=== PATIENT | male | born 1960 | race Caucasian/White ===

== ENCOUNTER → 2017-07-07 | Outpatient (CLI) | payer BC ==
--- NOTE | 2017-07-07 16:48 | RADIOLOGY REPORT (SQ) ---
EXAM DESCRIPTION: CHEST PA/LATERAL COMPLETED DATE/TIME: 07/07/2017 4:41 pm REASON FOR STUDY: HEART FAILURE, UNSPECIFIED COMPARISON: None. EXAM PARAMETERS: NUMBER OF VIEWS: two views TECHNIQUE: Digital Frontal and Lateral radiographic views of the chest acquired. RADIATION DOSE: NA LIMITATIONS: none FINDINGS: LUNGS AND PLEURA: No opacities, masses or pneumothorax. No pleural effusion. MEDIASTINUM AND HILAR STRUCTURES: No masses or contour abnormalities. HEART AND VASCULAR STRUCTURES: Heart normal size. No evidence for failure. BONES: No acute findings. HARDWARE: None in the chest. OTHER: No other significant finding. IMPRESSION: NO SIGNIFICANT RADIOGRAPHIC FINDING IN THE CHEST. TECHNICAL DOCUMENTATION: JOB ID: [id number] [employer]- All Rights Reserved Reading location - IP/workstation name: [email or web address]
== END ==
LOC: OD 16:26
PROVIDERS: ATTEND Internal Medicine Cardiovascular Disease
DX: I50.9 Heart failure, unspecified (principal)
CPT/HCPCS: 71046

== ENCOUNTER → 2017-07-27 | Outpatient (CLI) | payer BC ==
--- NOTE | 2017-07-27 14:49 | RADIOLOGY REPORT (SQ) ---
EXAM DESCRIPTION: CTA HEAD; CTA NECK COMPLETED DATE/TIME: 07/27/2017 10:36 am; 07/27/2017 10:38 am REASON FOR STUDY: TRANSIENT CEREBRAL ISCHEMIC ATTACK (G45.9) G45.9 TRANSIENT CEREBRAL ISCHEMIC GERMAINE CK, UNSPECIFIED COMPARISON: None. TECHNIQUE: Pre and Post IV contrast scanning, thin section axial imaging through the brain to evalua te the arterial structures. Source and MIP images are saved and reviewed on PACS. Post IV scanning through the neck soft tissues was performed to evaluate the carotid and vertebral ci rculation. Source AA maximum intensity projected images were reviewed and saved to PACS. Advanced 3D imaging as volume-rendering, MIPs, SSD performed? yes All CT scanners at this facility use dose modulation, iterative reconstruction, and/or weight based d osing when appropriate to reduce radiation dose to as low as reasonably achievable (ALARA). [facility]: Dose Right [facility]: CareDose [facility]: Dose Right [facility]: Teradose 4D [facility]: [employer] CONTRAST TYPE AND DOSE: contrast/concentration: Isovue 370.00 mg/ml; Total Contrast Delivered: 80.0 ml; Total Saline Delivered: 75.0 ml RENAL FUNCTION: Creatinine 1.0 LIMITATIONS: None. FINDINGS: Pre and postcontrast brain imaging: Non contrasted imaging demonstrates minimal bifrontal and biparietal spotty low attenuation in the he mispheric white matter from minimal small vessel ischemic change. No CT evidence of acute ischemic c hange, acute intracranial hemorrhage, mass effect, or midline shift. Ventricles and extra-axial CSF spaces are normal. Paranasal sinuses are clear. There is fluid throughout the bilateral mastoid air cells. Middle ear cavities are clear. Orbits are unremarkable. On the post contrasted brain images, no abnormal vascular or brain parenchymal or dural enhancement i s seen. No masses. [place] CT angio: No [place] stenosis, vascular malformation, or aneurysm. Carotid and vertebral CT angio neck: Origin of the great vessels unremarkable. Patent right brachiocephalic artery, right common carotid artery. Minimal atherosclerotic plaque at the right carotid bifurcation without flow significant stenosis. Cervical internal carotid artery un remarkable. No dissection. Left common carotid artery unremarkable. Minimal atherosclerotic plaque at the left carotid bifurcat ion without flow significant stenosis. Left cervical ICA unremarkable. No dissection. Codominant vertebral arteries are widely patent throughout the neck. No dissection. No focal stenos is. Lung apices are clear. Airways are patent. No neck masses or adenopathy. Thyroid, major salivary g lands unremarkable. Mild multilevel degenerative disc changes in the cervical spine with mild right foraminal narrowing at C3-4, moderate left foraminal narrowing at C4-5, from bony spurring. IMPRESSION: NO CTA EVIDENCE OF STENOSIS OR ANEURYSM OF THE [place] OF [place]. MILD ATHEROSCLEROTIC CHANGE AT THE CAROTID BIFURCATIONS WITHOUT FLOW SIGNIFICANT STENOSIS. UNREMARKABLE VERTEBROBASILAR SYSTEM. TECHNICAL DOCUMENTATION: JOB ID: [id number] Quality ID # [id number]: Final reports with documentation of one or more dose reduction techniques (e.g., Au tomated exposure control, adjustment of the mA and/or kV according to patient size, use of iterative reconstruction technique) 2010 [employer]- All Rights Reserved Reading location - IP/workstation name: [email or web address]
--- NOTE | 2017-07-27 14:49 | RADIOLOGY REPORT (SQ) ---
EXAM DESCRIPTION: CTA HEAD; CTA NECK COMPLETED DATE/TIME: 07/27/2017 10:36 am; 07/27/2017 10:38 am REASON FOR STUDY: TRANSIENT CEREBRAL ISCHEMIC ATTACK (G45.9) G45.9 TRANSIENT CEREBRAL ISCHEMIC GERMAINE CK, UNSPECIFIED COMPARISON: None. TECHNIQUE: Pre and Post IV contrast scanning, thin section axial imaging through the brain to evalua te the arterial structures. Source and MIP images are saved and reviewed on PACS. Post IV scanning through the neck soft tissues was performed to evaluate the carotid and vertebral ci rculation. Source AA maximum intensity projected images were reviewed and saved to PACS. Advanced 3D imaging as volume-rendering, MIPs, SSD performed? yes All CT scanners at this facility use dose modulation, iterative reconstruction, and/or weight based d osing when appropriate to reduce radiation dose to as low as reasonably achievable (ALARA). [facility]: Dose Right [facility]: CareDose [facility]: Dose Right [facility]: Teradose 4D [facility]: [employer] CONTRAST TYPE AND DOSE: contrast/concentration: Isovue 370.00 mg/ml; Total Contrast Delivered: 80.0 ml; Total Saline Delivered: 75.0 ml RENAL FUNCTION: Creatinine 1.0 LIMITATIONS: None. FINDINGS: Pre and postcontrast brain imaging: Non contrasted imaging demonstrates minimal bifrontal and biparietal spotty low attenuation in the he mispheric white matter from minimal small vessel ischemic change. No CT evidence of acute ischemic c hange, acute intracranial hemorrhage, mass effect, or midline shift. Ventricles and extra-axial CSF spaces are normal. Paranasal sinuses are clear. There is fluid throughout the bilateral mastoid air cells. Middle ear cavities are clear. Orbits are unremarkable. On the post contrasted brain images, no abnormal vascular or brain parenchymal or dural enhancement i s seen. No masses. [place] of [place] CT angio: No [place] of [place] stenosis, vascular malformation, or aneurysm. Carotid and vertebral CT angio neck: Origin of the great vessels unremarkable. Patent right brachiocephalic artery, right common carotid artery. Minimal atherosclerotic plaque at the right carotid bifurcation without flow significant stenosis. Cervical internal carotid artery un remarkable. No dissection. Left common carotid artery unremarkable. Minimal atherosclerotic plaque at the left carotid bifurcat ion without flow significant stenosis. Left cervical ICA unremarkable. No dissection. Codominant vertebral arteries are widely patent throughout the neck. No dissection. No focal stenos is. Lung apices are clear. Airways are patent. No neck masses or adenopathy. Thyroid, major salivary g lands unremarkable. Mild multilevel degenerative disc changes in the cervical spine with mild right foraminal narrowing at C3-4, moderate left foraminal narrowing at C4-5, from bony spurring. IMPRESSION: NO CTA EVIDENCE OF STENOSIS OR ANEURYSM OF THE [place] OF [place]. MILD ATHEROSCLEROTIC CHANGE AT THE CAROTID BIFURCATIONS WITHOUT FLOW SIGNIFICANT STENOSIS. UNREMARKABLE VERTEBROBASILAR SYSTEM. TECHNICAL DOCUMENTATION: JOB ID: [id number] Quality ID # [id number]: Final reports with documentation of one or more dose reduction techniques (e.g., Au tomated exposure control, adjustment of the mA and/or kV according to patient size, use of iterative reconstruction technique) 2010 [employer]- All Rights Reserved Reading location - IP/workstation name: [email or web address]
== END ==
LOC: RAD 09:57
PROVIDERS: ATTEND Internal Medicine Cardiovascular Disease
DX: G45.9 Transient cerebral ischemic attack, unspecified (principal)
CPT/HCPCS: 70496; 70498

== ENCOUNTER 2019-02-19 09:25 | Day surgery (SDC) | payer BC ==
[2019-02-15 12:41] LABS: ABSOLUTE BASOPHILS # (AUTO) 0.1 10^3/uL (0.0-0.2); ABSOLUTE EOSINOPHILS # (AUTO) 0.2 10^3/uL (0.0-0.6); ABSOLUTE LYMPHOCYTES (AUTO) 1.7 10^3/uL (0.5-4.7); ABSOLUTE MONOCYTES (AUTO) 0.7 10^3/uL (0.1-1.4); ABSOLUTE NEUT (AUTO) 3.5 10^3/uL (1.7-8.2); BASOPHILS % (AUTO) 0.9 % (0-2); EOSINOPHILS % (AUTO) 3.1 % (0-6); HEMATOCRIT 38.4 % (37.9-51.0); HEMOGLOBIN 13.3 g/dL (13.5-17.0); LYMPHOCYTES % (AUTO) 28.1 % (13-45); MEAN CORPUSCULAR HEMOGLOBIN 30.3 pg (27.0-33.4); MEAN CORPUSCULAR HGB CONC 34.6 g/dL (32.0-36.0); MEAN CORPUSCULAR VOLUME 88 fl (80-97); MONOCYTES % (AUTO) 10.7 % (3-13); PLATELET COUNT 236 10^3/uL (150-450); RED BLOOD COUNT 4.39 10^6/uL (4.35-5.55); RED CELL DISTRIBUTION WIDTH 15.2 % (11.5-14.0); SEGMENTED NEUTROPHILS % (AUTO) 57.2 % (42-78); TOTAL CELLS COUNTED % (AUTO) 100 %; WHITE BLOOD COUNT 6.2 10^3/uL (4.0-10.5)
[2019-02-15 12:44] LABS: INTERNATIONAL RATION (INR) 1.02; PROTHROMBIN TIME 13.4 SEC (11.4-15.4)
[2019-02-15 12:45] LABS: PARTIAL THROMBOPLASTIN TIME 31.8 SEC (23.5-35.8)
[2019-02-15 13:22] LABS: ANION GAP 11 (5-19); BLOOD UREA NITROGEN 13 mg/dL (7-20); CALCIUM 9.2 mg/dL (8.4-10.2); CARBON DIOXIDE 25 mmol/L (22-30); CHLORIDE 106 mmol/L (98-107); GLUCOSE 160 mg/dL (75-110); POTASSIUM 3.8 mmol/L (3.6-5.0)
--- NOTE | 2019-02-15 14:50 | RADIOLOGY REPORT (SQ) ---
EXAM DESCRIPTION: CHEST PA/LATERAL COMPLETED DATE/TIME: 02/15/2019 12:32 pm REASON FOR STUDY: PRE-OP COMPARISON: None. EXAM PARAMETERS: NUMBER OF VIEWS: two views TECHNIQUE: Digital Frontal and Lateral radiographic views of the chest acquired. RADIATION DOSE: NA LIMITATIONS: none FINDINGS: LUNGS AND PLEURA: No opacities, masses or pneumothorax. No pleural effusion. MEDIASTINUM AND HILAR STRUCTURES: No masses or contour abnormalities. HEART AND VASCULAR STRUCTURES: Heart normal size. No evidence for failure. BONES: No acute findings. HARDWARE: None in the chest. OTHER: No other significant finding. IMPRESSION: NO SIGNIFICANT RADIOGRAPHIC FINDING IN THE CHEST. TECHNICAL DOCUMENTATION: JOB ID: [id number] [employer]- All Rights Reserved Reading location - IP/workstation name: [email or web address]
--- NOTE | 2019-02-15 15:01 | EKG REPORT ---
SEVERITY:- ABNORMAL ECG - SINUS RHYTHM RIGHT BUNDLE BRANCH BLOCK : Confirmed by: Jonathan Tamayo MD 15-Feb-2019 15:01:04
[~2019-02-19 09:25] MED LIST: ACETAMINOPHEN 325 MG TABLET PO PRN; CEFAZOLIN SODIUM 2 GM in DEXTROSE 5%-WATER 100 ML IV PRN; LACTATED RINGERS 1000 ML IV PRN; LIDOCAINE 0.5% INJ-PF (5 MG/ML) 50 ML SDV SUBCUT PRN; OXYCODONE HCL SR 10 MG TABLET PO PRN
[2019-02-19] MEDS ORDERED: OXYCODONE HCL SR 10 MG TABLET PO ONE (09:38)
[2019-02-19] MEDS ORDERED: ACETAMINOPHEN 325 MG TABLET ONE (09:38)
[2019-02-19 10:51] LABS: INTERNATIONAL RATION (INR) 1.06; PROTHROMBIN TIME 13.8 SEC (11.4-15.4)
[2019-02-19 10:52] LABS: PARTIAL THROMBOPLASTIN TIME 31.4 SEC (23.5-35.8)
[2019-02-19] MEDS ORDERED: LIDOCAINE 1% INJ-PF (10 MG/ML) 30 ML SDV ONE (10:54)
[2019-02-19] MEDS ORDERED: BUPIVACAINE HCL 0.5 % INJ/PF 30 ML SDV ONE (10:54)
[2019-02-19] MEDS ORDERED: EPINEPHRINE INJ/PF 1 MG/1 ML AMPULE ONE (10:54)
[2019-02-19] MEDS ORDERED: TRIAMCINOLONE ACETONIDE INJ 40 MG/1 ML VIAL ONE (10:54)
[2019-02-19] MEDS ORDERED: KETOROLAC TROMETHAMINE 60 MG/2 ML SDV ONE (10:55)
[2019-02-19 11:13] LABS: ALBUMIN 4.1 g/dL (3.5-5.0); ALKALINE PHOSPHATASE 130 U/L (38-126); ASPARTATE AMINO TRANSFERASE 20 U/L (17-59); BILIRUBIN,DIRECT 0.1 mg/dL (0.0-0.4); BILIRUBIN,TOTAL 0.6 mg/dL (0.2-1.3); POTASSIUM 3.6 mmol/L (3.6-5.0); TOTAL PROTEIN 7.3 g/dL (6.3-8.2)
[2019-02-19] MEDS ORDERED: PROPOFOL INJ 200 MG/20 ML VIAL IV ONE (11:29)
[2019-02-19] MEDS ORDERED: DIPHENHYDRAMINE HCL 50 MG/ML VIAL IV PRN (12:23)
[2019-02-19] MEDS ORDERED: FENTANYL CITRATE INJ/PF 100 MCG/2 ML AMPUL IV PRN ×3 (12:23)
[2019-02-19] MEDS ORDERED: BUPIVACAINE HCL 0.5 % INJ/PF 30 ML SDV INJ ONE (12:29)
[2019-02-19] MEDS ORDERED: LIDOCAINE 1% INJ (10 MG/ML) 10 ML MDV INJ ONE (12:29)
[2019-02-19] MEDS ORDERED: TRIAMCINOLONE ACETONIDE INJ 40 MG/1 ML VIAL INJ ONE (12:30)
[2019-02-19] MEDS ORDERED: KETOROLAC TROMETHAMINE 60 MG/2 ML SDV INJ ONE (12:30)
--- NOTE | 2019-02-19 13:44 | Operative Report ---
Operative Report DATE OF SURGERY: 02/19/19 PREOPERATIVE DIAGNOSIS: Loose bodies right knee. POSTOPERATIVE DIAGNOSIS: Meniscal and soft tissue calcification right knee, synovitis and chondromalacia. [place] right knee OPERATION: Right knee diagnostic arthroscopy, plica excision, partial synovectomy. SURGEON: MELCHOR TERRAZAS JR ANESTHESIA: Spinal COMPLICATIONS: None ESTIMATED BLOOD LOSS: 20 cc PROCEDURE: DESCRIPTION OF THE PROCEDURE: The patient was placed supine on the operating room table. After the patient was placed under spinal anesthesia, the right lower extremity prepped and draped in the usual sterile fashion for arthroscopic surgery. An appropriate timeout was performed. The right lower extremity was then exsanguinated with the use of an Esmarch and the tourniquet was inflated to 280 mmHg. The operation commenced with creation of the lateral portal. The arthroscope was directed into the suprapatellar pouch with the knee held in extension. A large amount of hypertrophic synovium was encountered that was inflamed and redundant. It was difficult to appreciate the patellofemoral joint as normally would at this interval. This synovium tracked all the way down into the medial compartment, where we proceeded with creating a medial portal through application of a spinal needle. Again this all took a little bit longer due to the increased amount of dense hypertrophic synovium. Shaver was introduced to remove this redundant tissue up through the medial plica. At this point a systematic examination of the right knee was begun arthroscopically, starting with the medial compartment. The medial gutter was entered. No loose bodies were identified but osteophytes were visible. The arthroscopic probe was used to inspect the contents of the medial compartment. Grade 3 changes were noted on the medial femoral condyles weightbearing portion. Medial meniscus was examined and found to be intact without any tear. The notch was then visualized. The anterior cruciate ligament was inspected and found to be intact as well as the PCL. The arthroscope was directed into the lateral compartment. There was moderate meniscal fraying without an overt tear of the lateral meniscus. This was debrided by a 4.5 mm suction shaver. The anterior horn of the lateral meniscus was found to be dense and nodular at the area of the noted calcifications on MRI. No loose bodies were appreciated. This area was debrided as much as safely possible while leaving the anterior horn intact without destabilizing it. Portals were exchanged and further evaluation and debridement was performed. At this point return to the patellofemoral compartment and a significant amount of synovium was appreciated surrounding the patella without much unhindered articular cartilage directly visible between the patella and the trochlea. We debrided this extensive synovial hypertrophy or potentially prior scar tissue to expose the patella and took this laterally into what appeared to be a lateral plica. The patellofemoral articulation was visualized and grade 1 to 2 changes were apparent both in the trochlea as well as the patella of the patellofemoral compartment. A mixture of Marcaine, lidocaine and toradol was injected into the right knee. The instruments were then removed. The portals were closed with 4-0 nylon and Xeroform and a light compressive dressing was applied. The tourniquet was deflated. The patient was recovered from his anesthetic and was returned to the recovery room in stable condition. There were no complications.
[2019-02-19] MEDS ORDERED: OXYCODONE HCL IR 5 MG TABLET PO PRN ×2 (13:51→13:52)
[2019-02-19] MEDS ORDERED: MORPHINE SULFATE 10 MG/ML INJ IV PRN (13:56)
[2019-02-19] MEDS ORDERED: TRAMADOL HCL 50 MG TABLET PO PRN (13:57)
[2019-02-19] MEDS ORDERED: DIPHENHYDRAMINE HCL 25 MG CAPSULE PO PRN (14:00)
[2019-02-19] MEDS ORDERED: ACETAMINOPHEN 325 MG TABLET PO SCH (14:00)
[2019-02-19] MEDS ORDERED: ONDANSETRON HCL 8 MG TABLET PO PRN (14:01)
[2019-02-19 17:32] VITALS: BP 136/74
--- NOTE | 2019-02-23 17:09 | Discharge Summary ---
Discharge Summary (SDC) - Discharge Final Diagnosis: Left knee internal derangement Date of Surgery: 02/19/19 Discharge Date: 02/19/19 Forms: ASU Anesthesia D/C Instruction, Discharge POC-Surgical Service Treatment or Instructions: Care for yourself at home: * Keep your knee elevated as directed. Raise your knee above the level of your heart as often as you can. This will help decrease swelling and pain. Prop your knee on pillows or blankets to keep it elevated comfortably. * Put ice on your knee. Ice helps decrease swelling and pain. Ice may also help prevent tissue damage. Use an ice pack or put crushed ice in a plastic bag. Cover it with a towel. Place it on your knee for 15 to 20 minutes every hour as directed. * Wear your knee dressing as directed. * Use assistive devices as directed. Use crutches or other devices to keep pressure off your knee as it heals. * Exercise your knee as directed. Your healthcare provider may give you exercises to do after your procedure. Start slowly and return to your usual activities as directed. RESUME NORMAL DIET. ACTIVITY TOLERATED. NO DRIVING. NO ALCOHOL. DO NOT MAKE IMPORTANT DECISION. Referrals: LYLE JOSUE JR, MD [Primary Care Provider] - MELCHOR TERRAZAS JR, DO [ACTIVE PROVISIONAL STAFF] - Discharge Diet: As Tolerated Discharge Activity: Activity As Tolerated Home Care Assistance: None Needed Report the Following to Your Physician Immediately: Shortness of Breath, Nausea, Vomiting, Fever over 101 Degrees, Numbness, Tingling Sensation
== END 2019-02-19 17:35 | disposition home or self-care (01) ==
LOC: OROUT 09:25
PROVIDERS: ATTEND Orthopaedic Surgery
DX: M25.861 Other specified joint disorders, right knee (principal); M65.861 Other synovitis and tenosynovitis, right lower leg; M94.261 Chondromalacia, right knee; M67.51 Plica syndrome, right knee; M25.561 Pain in right knee; I25.10 Atherosclerotic heart disease of native coronary artery without angina pectoris; J44.9 Chronic obstructive pulmonary disease, unspecified; E11.9 Type 2 diabetes mellitus without complications; I25.2 Old myocardial infarction; G47.33 Obstructive sleep apnea (adult) (pediatric); I50.9 Heart failure, unspecified; Z79.84 Long term (current) use of oral hypoglycemic drugs; Z79.51 Long term (current) use of inhaled steroids; Z79.891 Long term (current) use of opiate analgesic; M23.41 Loose body in knee, right knee
CPT/HCPCS: 93005; 36415 ×2; 82962; 84132; 85025; 85610 ×2; 85730 ×2; 80076; 80048; 71046; 93010; 01400; 29875; J3490 ×2; J0690; J0171; J1885; J3301; J7060; 1400; J2704